=== PATIENT | male | born 1985 | race Caucasian/White ===

== ENCOUNTER 2024-01-18 16:40 | Inpatient (IN) | payer OTHER ==
[2024-01-18 17:12] VITALS: BMI 23.7
[2024-01-18] MEDS ORDERED: BENZOCAINE/MENTHOL (CHLORASEPTIC ) LOZENGE MM PRN (18:10)
[2024-01-18] MEDS ORDERED: ACETAMINOPHEN 325 MG TABLET (FP) PO PRN (18:10)
[2024-01-18] MEDS ORDERED: ONDANSETRON *ODT* 4 MG TABLET SL PRN (18:10)
[2024-01-18] MEDS ORDERED: guaiFENesin 600 MG TABLET.ER (FP) PO PRN (18:10)
[2024-01-18] MEDS ORDERED: POLYETHYLENE GLYCOL (HEALTHYLAX) 3350 17 GM PACKET PO PRN (18:10)
[2024-01-18] MEDS ORDERED: IBUPROFEN 400 MG TABLET (FP) PO PRN (18:10)
[2024-01-18] MEDS ORDERED: NALOXONE HCL 0.4 MG/ML VIAL IM PRN (18:10)
[2024-01-18] MEDS ORDERED: chlordiazePOXIDE HCL 25 MG CAPSULE PO PRN (18:10)
[2024-01-18] MEDS ORDERED: LOPERAMIDE HCL 2 MG CAPSULE PO PRN (18:10)
[2024-01-18] MEDS ORDERED: IBUPROFEN 600 MG TABLET (FP) PO PRN (18:10)
[2024-01-18] MEDS ORDERED: NALOXONE (NARCAN) HCL 4 MG/0.1 ML SPRAY NS PRN (18:10)
[2024-01-18] MEDS ORDERED: DICYCLOMINE HCL 10 MG CAPSULE PO PRN (18:10)
[2024-01-18] MEDS ORDERED: MAGNESIUM HYDROX 2400MG/30ML ORAL SUSPENSION 30 ML CUP PO PRN (18:10)
[2024-01-18] MEDS ORDERED: BENZONATATE 200 MG CAPSULE PO PRN (18:10)
[2024-01-18] MEDS ORDERED: BISMUTH SUBSALICYLATE 524 MG/30 ML PO PRN (18:10)
[2024-01-18] MEDS ORDERED: NICOTINE POLACRILEX 2 MG GUM BUC PRN (18:16)
[2024-01-18] MEDS: PANTOPRAZOLE 40 MG TABLET PO SCH (18:47)
[2024-01-18] MEDS: chlordiazePOXIDE HCL 25 MG CAPSULE PO SCH (22:19)
[2024-01-18] MEDS: THIAMINE 100 MG TABLET PO SCH (22:19)
[2024-01-18] MEDS: MELATONIN 5 MG TABLETS PO SCH (22:21)
[2024-01-19] MEDS: PRENATAL VITAMINS W/ FOLIC ACID TABLET (FP) PO SCH (09:28)
[2024-01-19] MEDS: NICOTINE 14 MG/24 HOURS TOPICAL PATCH TD SCH (10:21)
[2024-01-19] MEDS: MAG HYDROX/AL HYDROX/SIMETH 30 ML UNIT-DOSE CUP PO PRN (13:06)
[2024-01-19 13:52] LABS: POTASSIUM 4.5 mmol/L (3.5-5.1); SODIUM 139 mmol/L (136-145)
[2024-01-19 13:54] LABS: CALCIUM 9.3 mg/dL (8.5-10.1); GLUCOSE,RANDOM 90 mg/dL (74-106)
[2024-01-19 13:55] LABS: ALBUMIN 3.6 g/dl (3.4-5.0); CO2 28 mmol/L (21-32)
[2024-01-19 13:56] LABS: HEMATOCRIT 41.2 % (35.4-49); HEMOGLOBIN 14.1 GM/dL (11.7-16.9); MCHC 34.1 g/dl (32.0-35.9); MEAN CELL VOLUME 96.7 fl (80-96); MEAN PLT VOLUME 7.6 fl (7.5-11.1); PLATELET COUNT 304 10^3/uL (134-434); RBC 4.27 M/mm3 (4.00-5.60); RDW 15.6 % (11.9-15.9); WHITE BLOOD COUNT 6.7 K/mm3 (4.0-10.0)
[2024-01-19 13:58] LABS: SGOT/AST 22 U/L (15-37)
[2024-01-19 13:59] LABS: BILIRUBIN,TOTAL 1.7 mg/dL (0.2-1); TOT PROT 7.2 g/dl (6.4-8.2)
[2024-01-19 14:00] LABS: ALK PHOS 98 U/L (45-117)
[2024-01-19 14:12] LABS: ANION GAP 5 mmol/L (4-13); BLOOD UREA NITROGEN 10.6 mg/dL (7-18); CHLORIDE 106 mmol/L (98-107); SGPT/ALT 21 U/L (13-61)
[2024-01-19] MEDS: TOLNAFTATE 1% CREAM 15 GM TUBE TP SCH (22:05)
[2024-01-20] MEDS: chlordiazePOXIDE HCL 25 MG CAPSULE PO SCH (05:30)
[2024-01-20] MEDS: hydrOXYzine PAMOATE 25 MG CAPSULE (FP) PO PRN (09:30)
[2024-01-20] MEDS: METHOCARBAMOL 500 MG TABLET PO PRN (09:30)
[2024-01-21] MEDS ORDERED: chlordiazePOXIDE HCL 10 MG CAPSULE PO PRN
[2024-01-21] MEDS: chlordiazePOXIDE HCL 10 MG CAPSULE PO SCH (05:43)
[2024-01-21 05:49] VITALS: RESP 18
[2024-01-21 09:01] VITALS: BP 124/84; PULSE 60; TEMP 98.6
[2024-01-22] MEDS ORDERED: chlordiazePOXIDE HCL 10 MG CAPSULE PO SCH (05:00)
[2024-01-23] MEDS ORDERED: chlordiazePOXIDE HCL 10 MG CAPSULE PO ONE (05:00)
== END 2024-01-21 11:19 | disposition home or self-care (01) | DRG 774 ==
LOC: YASAS 16:40 → Y6N 18:07
PROVIDERS: ADMIT Allergy & Immunology; ATTEND Surgery
PROC: HZ2ZZZZ Detoxification Services for Substance Abuse Treatment (ICD-10-PCS; principal; 2024-01-18)
DX: F10.230 Alcohol dependence with withdrawal, uncomplicated (principal); F14.20 Cocaine dependence, uncomplicated; F17.210 Nicotine dependence, cigarettes, uncomplicated; F10.282 Alcohol dependence with alcohol-induced sleep disorder; K21.9 Gastro-esophageal reflux disease without esophagitis; Z87.19 Personal history of other diseases of the digestive system; Z87.01 Personal history of pneumonia (recurrent)
CPT/HCPCS: 36415; 80053; 80305; 80307; 85027; 86780; 93005; 93010

== ENCOUNTER 2024-04-29 17:30 | Emergency (ER) | payer OTHER ==
[2024-04-29 17:38] VITALS: BP 147/74; PULSE 73; RESP 18; TEMP 98.1; BMI 25.8
[2024-04-29] MEDS ORDERED: IBUPROFEN 400 MG TABLET (FP) PO ONE (18:21)
[2024-04-29] MEDS ORDERED: ACETAMINOPHEN 500 MG TABLET (FP) ONE (18:22)
[2024-04-29] MEDS: IBUPROFEN 400 MG TABLET (FP) PO ONE (18:24)
[2024-04-29] MEDS: ACETAMINOPHEN 500 MG TABLET (FP) PO ONE (18:25)
[2024-04-29 18:29] LABS: URINE APPEARANCE Clear; URINE BILIRUBIN Negative (NEGATIVE); URINE COLOR Yellow; URINE GLUCOSE (UA) Negative (NEGATIVE); URINE KETONE Negative (NEGATIVE); URINE LEUK ESTERASE Negative (NEGATIVE); URINE NITRITE Negative (NEGATIVE); URINE PROTEIN Negative (NEGATIVE); URINE UROBILINOGEN 0.2 mg/dL (0.2-1.0)
== END 2024-04-29 18:59 | disposition home or self-care (01) ==
LOC: JERFT 17:30
DX: M54.50 Low back pain, unspecified (principal); R10.9 Unspecified abdominal pain
CPT/HCPCS: 81003; 87086; 99283-25

== ENCOUNTER 2024-05-27 15:25 | Emergency (ER) | payer OTHER ==
[2024-05-27 15:46] VITALS: BP 131/74; PULSE 91; RESP 19; TEMP 98.4; BMI 26.6
[2024-05-27] MEDS ORDERED: DIPHTH,PERTUSS(ACELL),TET 0.5 ML DISP.SYRIN IM ONE (17:02)
[2024-05-27] MEDS: DIPHTH,PERTUSS(ACELL),TET 0.5 ML DISP.SYRIN IM ONE (17:11)
[2024-05-27 19:09] LABS: HIV INTERPRETATION NEGATIVE (NEGATIVE)
== END 2024-05-27 17:16 | disposition home or self-care (01) ==
LOC: JERFT 15:25
PROC: 0HQ1XZZ Repair Face Skin, External Approach (ICD-10-PCS; principal; 2024-05-27)
PROC: 3E0234Z Introduction of Serum, Toxoid and Vaccine into Muscle, Percutaneous Approach (ICD-10-PCS; 2024-05-27)
DX: S01.412A Laceration without foreign body of left cheek and temporomandibular area, initial encounter (principal); W26.0XXA Contact with knife, initial encounter; Z23 Encounter for immunization
CPT/HCPCS: 12011-25; 36415; 86704; 86803; 87340; 87389; 87517; 90471; 90715; 99284-25